=== PATIENT | female | born 1965 | race Caucasian/White ===

== ENCOUNTER 2017-11-16 08:27 | Inpatient (IN) ==
[2017-11-16] MEDS ORDERED: Chlorhexidine Gluconate 2% 1 Pack (2 Cloths) TOPICAL PRN (08:48)
[2017-11-16] MEDS ORDERED: Metoprolol Tartrate 25 MG Tablet PO PRN (08:48)
[2017-11-16] MEDS ORDERED: Sodium Chlor 0.9% Inj 500 ML IV.SIG PRN (08:48)
[2017-11-16] MEDS ORDERED: Heparin - SQ 10,000 UNITS/ML Vial SQ SCH (09:00)
[2017-11-16] MEDS ORDERED: fentaNYL Citrate Inj 250 MCG/5 ML Ampul ONE (10:07)
[2017-11-16] MEDS ORDERED: Chlorhexidine Gluconate 2% 1 Pack (2 Cloths) TOPICAL SCH (11:30)
[2017-11-16] MEDS ORDERED: Lidocaine 1%/Epinephrine 1:100,000 Inj 50 ML Vial ONE (11:32)
[2017-11-16] MEDS ORDERED: Glycopyrrolate Inj 1 MG/5 ML Syringe IV.PUSH ONE (12:00)
[2017-11-16] MEDS ORDERED: Lidocaine PF 1% Inj 5 ML Syringe INFILTRATN ONE (12:00)
[2017-11-16] MEDS ORDERED: Ketorolac Inj 30 MG/ML (IVP) Vial IV.PUSH ONE (12:00)
[2017-11-16] MEDS ORDERED: Neostigmine Inj 5 MG/5 ML Syringe IV.PUSH ONE (12:00)
[2017-11-16] MEDS ORDERED: KCL 20 mEq/D5W/NaCl 0.45% Inj 1,000 ML ONE (13:30)
[2017-11-16] MEDS ORDERED: *morphine SULFATE 4 MG/ML PERIprocedure ONLY ONE (13:35)
[2017-11-16] MEDS ORDERED: Ketorolac Inj 30 MG/ML (IVP) Vial ONE (13:50)
[2017-11-16] MEDS ORDERED: HYDROmorphone PF Inj 2 MG/ML Vial ONE (13:51)
[2017-11-16] MEDS: Ketorolac Inj 30 MG/ML (IVP) Vial IV.PUSH SCH ×3 (13:53→19:58)
[2017-11-16] MEDS: KCL 20 mEq/D5W/NaCl 0.45% Inj 1,000 ML IV.CONT SCH ×2 (14:03→21:56)
[2017-11-16] MEDS ORDERED: *Meperidine Inj 25 MG/ML Vial PERIprocedural Use ONLY ONE (14:03)
--- NOTE | 2017-11-16 14:24 | MP ---
cc: Annika Madsen MD, Elizabeth C ARNP DATE OF OPERATION: 11/16/2017 PREOPERATIVE DIAGNOSIS: Lower abdominal/suprapubic mass. POSTOPERATIVE DIAGNOSIS: Lower abdominal/suprapubic mass. OPERATION: Radical resection of abdominal wall mass. SURGEON: Annika Madsen MD PLATE [employer] INSTALLER HELPER: Shanti human resource assistant. ANESTHESIA: General endotracheal anesthesia. ESTIMATED BLOOD LOSS: 50 mL. IV FLUIDS: 1000 mL. URINE OUTPUT: 100 mL. INDICATIONS FOR PROCEDURE: This is a 52-year-old female who recently presented with approximately 6 cm mass in the lower abdominal wall in the mons pubis region above the symphysis pubis. It was approximately 6 cm, solid, multilobulated and was essentially eroding through the skin, which was causing bleeding. She reports that she noticed a small skin lesion approximately 5 years ago. It very gradually over the years increased in size and extended into the subcutaneous tissue, but recently sought evaluation because of significant change in size and symptoms, skin irritation and bleeding. MRI scan confirms a mass showing it to be heterogeneous in nature, multilobulated, vascular in appearance. It seems limited to the abdominal wall above the fascia. There are no additional nodules. No adenopathy detected on imaging. FINDINGS: On exam under anesthesia, the mass is as described on MRI scan and on office exam. It is approximately 6 cm, multilobular, solid. There is a central portion where it has eroded through the skin with approximately 1 cm area of skin breakdown. It extends deep in the subcutaneous tissue, but remains above the fascia. The inferior edge of the mass extends to the periclitoral tissue just above the glans of the clitoris. After resection, all of the grossly visible and palpable tumor was resected with a margin of normal-appearing tissue circumferentially. The 6 o'clock margin was marked with a suture, which corresponds to the clitoris margin. On gross inspection, there was a narrow margin of normal-appearing skin and on frozen section analysis, there appears to be at least a 5 mm margin of normal-appearing skin around the tumor in this region. Frozen section analysis is unable to clarify the diagnosis. Whereas there are changes suspicious for malignancy, it is uncertain if it is highly atypical-appearing benign lesion or a malignant lesion and further information is needed. Based on the uncertainty and given that any more radical resection would disrupt the sensory component and blood supply to the clitoris and combined with a grossly and microscopically negative margin, additional resection in that region was not performed. DESCRIPTION OF PROCEDURE: She was taken to the operating room where she was placed in the lower dorsal lithotomy position. After general endotracheal anesthesia was administered and timeout was undertaken, she was identified by site recognition and hospital ID bracelet and the proposed procedure was reviewed and confirmed. She was carefully positioned in the padded Derek stirrups. Arms were secured out to the sides. She was prepped and draped in sterile fashion. Leiva catheter placed in the bladder. Careful inspection and palpation of the surrounding tissue led to the decision to resect this with a transverse elliptical radical excision, which would allow for a better chance at mobilization and primary closure than a vertical incision. Sterile marker was used to outline an elliptical excision transverse in nature centered around the large mass. Lidocaine with epinephrine injected in subcutaneous tissue. Sharp dissection was used circumferentially and then cautery and sharp dissection were used to dissect down to the level of the abdominal wall fascia and dissect underneath the mass, starting along the upper edge and dissecting toward the symphysis pubis. Now, the incision was made across the lower border with care taken to spare the clitoral tissue and glans of the clitoris, but also to enable a grossly negative margin of tissue being removed along the inferior aspect of this tissue. The skin in this region was quite indurated, thickened from chronic irritation. A sharp dissection and cautery dissection were now used to dissect underneath the mass down to the level of the abdominal wall fascia from the inferior approach until the entire mass with surrounding tissue were removed. The specimen was inspected. A suture was placed at the 6 o'clock margin, which corresponded to the clitoris margin and sent for frozen section analysis with preliminary findings as described above. The dissection bed was irrigated. Efforts were made to mobilize the subcutaneous tissue in all directions, which was carried out circumferentially with traction and countertraction on the tissue until it appeared as though the skin edges could eventually be brought together without tension. The subcutaneous tissue was brought toward the center and secured to the underlying fascia in a stepwise fashion with interrupted 2-0 Vicryl sutures. This was accomplished in multiple layers with continued mobilization of the tissue until Reji's fascia was further reinforced and reapproximated with interrupted 2-0 Vicryl sutures, which left the skin in close proximity without tension. The skin edges were then closed with a running 3-0 Vicryl subcuticular starting in the middle. The subcuticular closure was carried out laterally, which rendered it completely hemostatic. The closure was without tension. Good cosmetic closure and complete radical resection of the abdominal wall mass. Steri-Strips and dry sterile dressing were placed over the incision. Preliminary and final counts were correct. She was returned to dorsal lithotomy position and was pending reversal of anesthesia when I left the operating room to precede her to the postanesthesia care unit to speak to her significant other waiting in the surgery waiting room. MD KHRIS Marie/carlos , 01:33 PM , 01:47 PM
[2017-11-16] MEDS ORDERED: Metoprolol Tartrate 25 MG Tablet PO SCH (14:30)
[2017-11-16] MEDS: LORazepam 0.5 MG Tablet PO PRN (14:33)
[2017-11-16] MEDS: HYDROmorphone PF Inj 2 MG/ML Vial IV.PUSH PRN ×2 (16:20→21:53)
[2017-11-17] MEDS: LORazepam 0.5 MG Tablet PO PRN (00:16)
[2017-11-17] MEDS: Ketorolac Inj 30 MG/ML (IVP) Vial IV.PUSH SCH ×3 (01:00→13:24)
[2017-11-17] MEDS: HYDROmorphone PF Inj 2 MG/ML Vial IV.PUSH PRN ×2 (01:01→05:24)
[2017-11-17] MEDS: KCL 20 mEq/D5W/NaCl 0.45% Inj 1,000 ML IV.CONT SCH (01:35)
[2017-11-17 04:26] LABS: Baso % (Auto) 0.1 % (0.0-2.0); Hematocrit 32.9 % (35.0-46.0); Hemoglobin 11.3 gm/dL (11.6-15.3); Lymph % (Auto) 12.5 % (9.0-44.0); Mean Corpuscular HGB Conc 34.4 % (32.0-36.0); Mean Corpuscular Hemoglobin 30.2 pg (27.0-34.0); Mean Corpuscular Volume 87.8 fL (80.0-100.0); Mean Platelet Volume 9.3 fL (7.0-11.0); Mono # (Auto) 0.4 th/mm3 (0.0-0.9); Mono % (Auto) 5.1 % (0.0-8.0); Neut # (Auto) 6.5 th/mm3 (1.8-7.7); Neut % (Auto) 82.3 % (16.0-70.0); Platelet Count 186 th/mm3 (150-450); Red Blood Count 3.74 mil/mm3 (4.00-5.30); Red Cell Distribution Width 13.4 % (11.6-17.2); White Blood Count 7.9 th/mm3 (4.0-11.0)
[2017-11-17 04:53] LABS: Anion Gap 8 meq/L (5-15); Blood Urea Nitrogen 8 mg/dL (7-18); Calcium 8.6 mg/dL (8.5-10.1); Carbon Dioxide 26.6 meq/L (21.0-32.0); Chloride 107 meq/L (98-107); Glomerular Filtration Rate Greater Than 89 mL/min (>89); Glucose,Random 147 mg/dL (74-106); Potassium 4.5 meq/L (3.5-5.1); Sodium 142 meq/L (136-145)
--- NOTE | 2017-11-18 14:46 | MD ---
cc: Annika Madsen MD, Elizabeth C ARNP DATE OF DISCHARGE: 11/17/2017 PROCEDURE: 11/16/2017: Radical resection of abdominal wall tumor. HOSPITAL COURSE: She did well in her early postop period has pain consistent with surgery, but controlled. Some nausea, emesis improving; hemodynamically stable, tolerating oral intake. Leiva catheter removed pending voiding. Ins and outs: 2200/3100. LABORATORY DATA: H and H this morning 11.3 and 32.9, potassium 4.5, creatinine 0.59. PHYSICAL EXAMINATION: VITAL SIGNS: Afebrile, pulse 68-73, respirations 16-20, blood pressure 108-135/65-77; O2 saturations 98-100%. GENERAL: Alert and oriented x3, no acute distress. LUNGS: Clear. CARDIOVASCULAR: Regular rate and rhythm. ABDOMEN: Soft. The incision dressing clean and dry. ASSESSMENT: Postoperative day number one status post radical resection of abdominal wall tumor, doing well in the early postoperative period. The preliminary findings and preliminary pathology are discussed. Activities restrictions reviewed. Questions were asked and answered. With respect to medication, she had previously been on Keflex and she is advised to continue that medication until the course of therapy is completed. With respect to her pain medication, she previously had some long-acting morphine I believe was given to her through the emergency room. She has Percocet available for postoperative pain. She is advised very clearly to select one pain medication or the other. She is not to double up or duplicate these therapies and the potential problems of duplicated therapy are clearly stated and she expressed good understanding. She understands she can supplement with [id number] medication that does not contain Tylenol, such as ibuprofen or Aleve. PLAN: Anticipate she will meet criteria for discharge to home; therefore, discharge to home if criteria are met. She has been given our office number to schedule a followup within 2 weeks or to contact our office should she have any questions or problems between now and that time. MD KHRIS Marie/woody , 07:07 AM , 07:15 AM
== END 2017-11-17 15:40 | disposition home or self-care (01) ==
LOC: HSDI 08:27 → HCIN 18:50
PROVIDERS: ADMIT Obstetrics & Gynecology Gynecologic Oncology; ATTEND Obstetrics & Gynecology Gynecologic Oncology